=== PATIENT | female | born 1995 | race Two or more races ===

== ENCOUNTER 2017-07-25 12:30 | Observation (INO) | payer SELFPAY ==
[2016-05-08 09:54] VITALS: BP 92/63
[~2017-07-25] VITALS: Ht 147.3 cm; Wt 57.6 kg
[2017-07-25] MEDS ORDERED: SULBACTAM IV ONE (15:00)
[2017-07-25] MEDS ORDERED: TERBUTALINE 1 MG/ML VIAL. SQ PRN (15:00)
[2017-07-25] MEDS ORDERED: IV RINGERS,LACTATED 500ML 500 ML IV PRN (15:00)
[2017-07-25] MEDS ORDERED: ONDANSETRON PF 4 MG/2 ML VIAL. IV PRN (15:00)
[2017-07-25] MEDS ORDERED: NORMAL SALINE IV ONE (15:00)
[2017-07-25] MEDS ORDERED: AMPICILLIN IV ONE (15:00)
[2017-07-25] MEDS: IV RINGERS,LACTATED 1000ML 1,000 ML IV PRN ×3 (15:26→23:10)
[2017-07-25] MEDS ORDERED: AMPICILLIN SODIUM IV Push 2 GM VIAL. IVP ONE (15:30)
[2017-07-25 15:36] LABS: BASO # 0.1 x10^3/uL (0.0-0.2); BASO % 0 % (0-3); EOS % 0 % (0-3); HEMATOCRIT 33.3 % (36.0-47.0); HEMOGLOBIN 10.6 g/dL (12.0-15.5); LYMPH # 1.9 x10^3/uL (1.0-4.8); LYMPH % 14 % (24-48); MEAN CORPUSCULAR HEMOGLOBIN 24 pg (25-35); MEAN CORPUSCULAR HGB CONC 32 g/dL (31-37); MEAN CORPUSCULAR VOLUME 77 fL (79-100); MONO % 6 % (0-9); NEUT % 80 % (31-73); PLATELET COUNT 247 x10^3/uL (140-400); RED BLOOD COUNT 4.33 x10^6/uL (3.50-5.40); RED CELL DISTRIBUTION WIDTH 18.3 % (11.5-14.5); WHITE BLOOD COUNT 13.5 x10^3/uL (4.0-11.0)
[2017-07-25] MEDS: hydrOXYzine PAMOATE 25 MG CAPSULE PO PRN ×2 (15:47→23:40)
[2017-07-25] MEDS: BETAMET ACET&NA PHOS 30 MG/5 ML VIAL. IM SCH (15:48)
[2017-07-25] MEDS ORDERED: NORMAL SALINE IV SCH (16:00)
[2017-07-25] MEDS ORDERED: SULBACTAM IV SCH (16:00)
[2017-07-25] MEDS ORDERED: AMPICILLIN IV SCH (16:00)
[2017-07-25 19:56] LABS: BILIRUBIN,URINE NEGATIVE (NEG); GLUCOSE,URINE NEGATIVE (NEG); NITRITE,URINE NEGATIVE (NEG); PROTEIN,URINE NEGATIVE (NEG-TRACE); UROBILINOGEN,URINE 0.2 mg/dL (0.2 mg/dL)
[2017-07-25 20:02] LABS: BARBITURATES NEG (NEG); BENZODIAZEPINES NEG (NEG); CANNABINOIDS NEG (NEG); COCAINE NEG (NEG); METHADONE NEG (NEG); OPIATES NEG (NEG); PHENCYCLIDINE NEG (NEG)
[2017-07-25 20:06] LABS: BACTERIA,URINE 0 /HPF (0-FEW); RBC,URINE 0 /HPF (0-2); SQUAMOUS EPITHELIAL CELL,UR OCC /LPF; WBC,URINE 0 /HPF (0-4)
[2017-07-25] MEDS: AMPICILLIN SODIUM IV Push 1 GM VIAL. IVP SCH (23:40)
[2017-07-26] MEDS: AMPICILLIN SODIUM IV Push 1 GM VIAL. IVP SCH ×4 (03:55→18:33)
[2017-07-26] MEDS: IV RINGERS,LACTATED 1000ML 1,000 ML IV PRN ×2 (07:58→16:18)
[2017-07-26] MEDS: hydrOXYzine PAMOATE 25 MG CAPSULE PO PRN ×2 (07:58→19:41)
[2017-07-26] MEDS ORDERED: fentaNYL PF VIAL 100 MCG/2 ML VIAL IV PRN (14:15)
--- NOTE | 2017-07-26 15:01 | PDOC1 ---
OB - History Hx of Present Care: Limited Care Ultrasounds: Normal mid trimester US Obstetrical Complications: None Medical Complications: None Other Concerns: h/o rapid labor Past Family/Social History * Past Medical, Surgical, Family and Obstetric Histories reviewed from chart. Rubella: Immune RPR/VDRL: Negative GBS Status: Unknown HBsAG: Negative OB - Chief Complaint & HPI Date of Admission: Date of Admission: Jul 25, 2017 at 12:30 Chief Complaint/History : 2 Para: 1 EGA: 36 Reason for admission: labor Admission Nurse Assessment Rev: Yes Problems: OB - Admission Exam Physical Exam Vitals: VS - Last 72 Hours, by Label Date Time Temp Pulse Resp B/P (MAP) Pulse Ox O2 Delivery O2 Flow Rate FiO2 07/26/17 14:34 20 HEENT: Normal Heart: Regular Rate Lungs: Clear Abdomen: Gravid, Soft, Tender Extremities: Edema Reflexes: Normal Cervical Dilatation: 1cm Effacement: 50% Station: -3 Membranes: Intact Heart Rate: Normal Accelerations: Accelerations Present Decelerations: No decelerations Contractions on Admission: < 5 Minutes Apart Intensity: Moderate Text A: 36 wks IUP by sono ( pt. unsure about LMP) H/o rapid labor PTL P: Admit for IV hydration. Pt. started on late dose corticosteroids for lung maturity. Will recheck cervix after 2nd dose of betamethasone and if no change, then d/c home with f/u in 1 week. MICHEL HOLT Jr, MD Jul 26, 2017 15:01
[2017-07-26] MEDS: BETAMET ACET&NA PHOS 30 MG/5 ML VIAL. IM SCH (16:15)
== END 2017-07-26 19:56 | disposition home or self-care (01) ==
LOC: 3 SO LND 12:30
PROVIDERS: ADMIT Specialist; ATTEND Specialist
DX: O60.03 Preterm labor without delivery, third trimester (principal); Z3A.36 36 weeks gestation of pregnancy
CPT/HCPCS: 36415; 80307; 81001; 85025; 86592; 86593; 86850; 86900; 86901; 96361; 96372; 96374; 96375; 96376; G0378; G0379; J0290; J0702; J3010; Q0177; J7120; G0479

== ENCOUNTER 2017-07-30 03:14 | Inpatient (IN) | payer SELFPAY ==
[~2017-07-30] VITALS: Ht 147.3 cm; Wt 56.8 kg
[2017-07-30] MEDS ORDERED: IV RINGERS,LACTATED 1000ML 1,000 ML IV SCH ×2 (03:30→04:37)
[2017-07-30 03:57] LABS: BILIRUBIN,URINE NEGATIVE (NEG); GLUCOSE,URINE NEGATIVE (NEG); NITRITE,URINE NEGATIVE (NEG); PH,URINE 6.5; PROTEIN,URINE NEGATIVE (NEG-TRACE)
[2017-07-30 04:04] LABS: BARBITURATES NEG (NEG); BENZODIAZEPINES NEG (NEG); CANNABINOIDS NEG (NEG); COCAINE NEG (NEG); METHADONE NEG (NEG); OPIATES NEG (NEG); PHENCYCLIDINE NEG (NEG)
[2017-07-30 04:12] LABS: BACTERIA,URINE MODERATE /HPF (0-FEW); RBC,URINE OCC /HPF (0-2); SQUAMOUS EPITHELIAL CELL,UR MOD /LPF
[2017-07-30] MEDS ORDERED: TERBUTALINE 1 MG/ML VIAL. ONE (04:38)
[2017-07-30] MEDS ORDERED: LIDOCAINE 1% PF 30 ML VIAL. INJ PRN (04:45)
[2017-07-30] MEDS ORDERED: AMPICILLIN SODIUM 1 GM in IV NORMAL SALINE 50ML 50 ML IV SCH (04:45)
[2017-07-30] MEDS ORDERED: OXYTOCIN 30 UNIT/500 ML PREMIX 500 ML IV PRN (04:45)
[2017-07-30] MEDS ORDERED: AMPICILLIN SODIUM 2 GM in IV NORMAL SALINE 100ML 100 ML IV ONE (04:45)
[2017-07-30] MEDS ORDERED: 0.9 % SODIUM CHLORIDE 10 ML DISP.SYRIN. IV PRN (04:45)
[2017-07-30] MEDS ORDERED: TERBUTALINE 1 MG/ML VIAL. SQ PRN (04:45)
[2017-07-30] MEDS ORDERED: AMPICILLIN SODIUM IV Push 2 GM VIAL. IVP ONE (05:00)
[2017-07-30] MEDS ORDERED: OXYTOCIN in NORMAL SALINE PREMIX 30 UNIT/500 ML BAG. IV ONE (05:30)
[2017-07-30 05:50] LABS: BASO % 0 % (0-3); EOS % 0 % (0-3); HEMATOCRIT 33.3 % (36.0-47.0); HEMOGLOBIN 10.5 g/dL (12.0-15.5); LYMPH % 30 % (24-48); MEAN CORPUSCULAR HEMOGLOBIN 24 pg (25-35); MEAN CORPUSCULAR HGB CONC 31 g/dL (31-37); MEAN CORPUSCULAR VOLUME 78 fL (79-100); MONO % 7 % (0-9); NEUT % 63 % (31-73); PLATELET COUNT 262 x10^3/uL (140-400); RED CELL DISTRIBUTION WIDTH 19.2 % (11.5-14.5); WHITE BLOOD COUNT 13.3 x10^3/uL (4.0-11.0)
--- NOTE | 2017-07-30 05:59 | RAD ---
Limited OB ultrasound greater than 14 weeks 07/30/2017 Clinical History: Patient presents in labor of uncertain dates and size. Technique: A real-time ultrasound examination of the gravid uterus was performed. Multiple images were obtained. Findings: There is a single living IUP. The fetus is in a cephalic position. cardiac and somatic activity is seen. The heart rate is 149 beats per minutes. The maternal cervix is not visualized. Neither maternal ovary is seen. The placenta is in anterior. No abnormality is seen. The amniotic fluid volume is within normal limits. The MJ measures 5.8. The following measurements were obtained: BPD 8.6cm 34 weeks 6 days HC 31.32 cm 35weeks 1 days AC 32.8 cm 36weeks 0 days FL 7.38 cm 37 weeks 5 days The estimated gestational age by ultrasound is 36 weeks 0 days plus or minus a standard deviation of 3 weeks. The estimated date of delivery by ultrasound is 08/27/2017. The estimated weight is 2880 g +/- 426 g (6 lbs. 6 oz.). Detailed evaluation of anatomy was not performed. Impression: Single living IUP with an estimated gestational age by ultrasound of 36 weeks 0 days +/- a standard deviation of 3 weeks Electronically signed by: Kennedy Barry MD (07/30/2017 5:56 AM) [id number]
[2017-07-30] MEDS ORDERED: BETAMET ACET&NA PHOS 30 MG/5 ML VIAL. IM SCH (06:00)
--- NOTE | 2017-07-30 06:01 | PDOC1 ---
OB - History Hx of Present Care: Good Care Ultrasounds: Normal mid trimester US Obstetrical Complications: None Medical Complications: None Past Family/Social History * Past Medical, Surgical, Family and Obstetric Histories reviewed from chart. Blood Type: O+ Rubella: Immune RPR/VDRL: Negative GBS Status: Positive HBsAG: Negative OB - Chief Complaint & HPI Date of Admission: Date of Admission: Jul 30, 2017 at 03:14 Chief Complaint/History : 2 Para: 1 EDC: Aug 23, 2017 EGA: 36.4 Reason for admission: active labor Admission Nurse Assessment Rev: Yes Problems: OB - Admission Exam Physical Exam HEENT: Normal, Nasal Mucosa Normal, Oropharynx Normal, Moist Membranes, Fontanelles Normal Heart: Regular Rate Lungs: Clear Abdomen: Gravid Extremities: Normal Pulses, No tenderness or swelling Reflexes: Normal Cervical Dilatation: 2cm Effacement: 50% Station: -2 Membranes: Intact Heart Rate: Normal Accelerations: Accelerations Present Decelerations: No decelerations Short Term Variability: Present Shelter Variability: Moderate Contractions on Admission: < 5 Minutes Apart Date/Time Contractions Began;: 07/30/17 Frequency of Contractions: 0100 Intensity: Moderate A/P Pt is a 21yo female @ 36.4wga 1)Early labor- CEFM. There was some initial confusion on due date. Pt' s initial due date was based on LMP and was 09/10/17, but was changed after initial U/S done 2 months ago to 08/23/17, confirmed with U/S done this morning on pt's arrival 2)GBS positive 3) Problems: ANGIE CERRATO MD Jul 30, 2017 06:01
[2017-07-30] MEDS ORDERED: fentaNYL PF VIAL 100 MCG/2 ML VIAL ONE (07:38)
[2017-07-30] MEDS ORDERED: fentaNYL PF VIAL 100 MCG/2 ML VIAL IV PRN (07:45)
--- NOTE | 2017-07-30 08:24 | PDOC ---
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 Pt given 1 dose of Ampicillin prior to delivery 3) Problems: ANGIE CERRATO MD Jul 30, 2017 08:24
[2017-07-30] MEDS ORDERED: AMPICILLIN SODIUM IV Push 1 GM VIAL. IVP SCH (09:00)
[2017-07-30] MEDS: IBUPROFEN 800 MG TABLET. PO PRN (10:37)
[2017-07-30 13:11] VITALS: BP 101/63
[2017-07-30 17:00] VITALS: BP 98/72
[2017-07-30 23:13] VITALS: BP 98/58
[2017-07-31 05:27] VITALS: BP 100/50
[2017-07-31] MEDS: IBUPROFEN 800 MG TABLET. PO PRN (06:59)
--- NOTE | 2017-07-31 07:55 | PDOC ---
OB Progress Note Date of Service 07/31/17 Time of Evaluation 0740 Date: 07/30/17 Time: 0807 Notes Pt is doing well. not latching well but pt still trying to breastfeed; supplementing with formula. Bleeding is less than a period. Pt considering Nexplanon for control. Lab Laboratory Tests Test 07/30/17 03:30 07/30/17 05:07 Urine Collection Type Unknown Urine Color Yellow Urine Clarity Clear Urine pH 6.5 Urine Specific [place] 1.015 Urine Protein Negative mg/dL (NEG-TRACE) Urine Glucose (UA) Negative mg/dL (NEG) Urine Ketones (Stick) Negative mg/dL (NEG) Urine Blood Small (NEG) Urine Nitrite Negative (NEG) Urine Bilirubin Negative (NEG) Urine Urobilinogen Dipstick 1.0 mg/dL (0.2 mg/dL) Urine Leukocyte Esterase Negative (NEG) Urine RBC Occ /HPF (0-2) Urine WBC 1-4 /HPF (0-4) Urine Squamous Epithelial Cells Mod /LPF Urine Bacteria Moderate /HPF (0-FEW) Urine Mucus Slight /LPF Urine Opiates Screen Neg (NEG) Urine Methadone Screen Neg (NEG) Urine Barbiturates Neg (NEG) Urine Phencyclidine Screen Neg (NEG) Urine Amphetamine/Methamphetamine Neg (NEG) Urine Benzodiazepines Screen Neg (NEG) Urine Cocaine Screen Neg (NEG) Urine Cannabinoids Screen Neg (NEG) Urine Ethyl Alcohol Neg (NEG) White Blood Count 13.3 x10^3/uL (4.0-11.0) Red Blood Count 4.30 x10^6/uL (3.50-5.40) Hemoglobin 10.5 g/dL (12.0-15.5) Hematocrit 33.3 % (36.0-47.0) Mean Corpuscular Volume 78 fL (79-100) Mean Corpuscular Hemoglobin 24 pg (25-35) Mean Corpuscular Hemoglobin Concent 31 g/dL (31-37) Red Cell Distribution Width 19.2 % (11.5-14.5) Platelet Count 262 x10^3/uL (140-400) Neutrophils (%) (Auto) 63 % (31-73) Lymphocytes (%) (Auto) 30 % (24-48) Monocytes (%) (Auto) 7 % (0-9) Eosinophils (%) (Auto) 0 % (0-3) Basophils (%) (Auto) 0 % (0-3) Neutrophils # (Auto) 8.4 x10^3uL (1.8-7.7) Lymphocytes # (Auto) 4.0 x10^3/uL (1.0-4.8) Monocytes # (Auto) 0.9 x10^3/uL (0.0-1.1) Eosinophils # (Auto) 0.0 x10^3/uL (0.0-0.7) Basophils # (Auto) 0.0 x10^3/uL (0.0-0.2) Rapid Plasma Reagin Non reactive (Non Reactive) Medications Current Medications Ringer's Solution 1,000 ml @ 125 mls/hr Q8H IV ; Start 07/30/17 at 03:30; Stop 07/30/17 at 13:17; Status DC Terbutaline Sulfate (Brethine) 1 mg STK-MED ONCE .ROUTE ; Start 07/30/17 at 04: 38; Stop 07/30/17 at 13:17; Status DC Sodium Chloride (Normal Saline Flush) 3 ml QSHIFT PRN IV AFTER MEDS AND BLOOD DRAWS; Start 07/30/17 at 04:45; Stop 07/30/17 at 13:17; Status DC Ringer's Solution 1,000 ml @ 125 mls/hr Q8H IV ; Start 07/30/17 at 04:37; Stop 07/30/17 at 13:17; Status DC Terbutaline Sulfate (Brethine) 0.25 mg 1X PRN PRN SQ SEE COMMENTS; Start 07/30 at 04:45; Stop 07/30/17 at 13:17; Status DC Lidocaine HCl 30 ml 1X PRN PRN INJ SEE COMMENTS; Start 07/30/17 at 04:45; Stop 07/30/17 at 13:17; Status DC Ampicillin Sodium 2 gm/Sodium Chloride 100 ml @ 200 mls/hr 1X ONCE IV ; Start 07/30/17 at 04:45; Stop 07/30/17 at 05:14; Status UNV Ampicillin Sodium 1 gm/Sodium Chloride 50 ml @ 100 mls/hr Q4H IV ; Start 07/30 at 04:45; Status UNV Oxytocin/Sodium Chloride 500 ml @ 0 mls/hr CONT PRN PRN IV Post delivery bleeding; Start 07/30/17 at 04:45; Stop 07/30/17 at 13:17; Status DC Ibuprofen (Motrin) 800 mg PRN Q6HRS PRN PO MODERATE PAIN Last administered on 07/31/17t 06:59; Start 07/30/17 at 04:45 Betamethasone Sodium Phosphate (Celestone Soluspan) 12 mg Q24H IM ; Start 07/30 at 06:00; Stop 07/30/17 at 13:17; Status DC Ampicillin Sodium (Omnipen) 2 gm 1X ONCE IVP Last administered on 07/30/17t 05:25; Start 07/30/17 at 05:00; Stop 07/30/17 at 13:17; Status DC Ampicillin Sodium (Omnipen) 1 gm Q4H IVP ; Start 07/30/17 at 09:00; Stop 07/30 at 13:17; Status DC Fentanyl Citrate (Fentanyl 2ml Vial) 100 mcg STK-MED ONCE .ROUTE ; Start at 07:38; Stop 07/30/17 at 13:17; Status DC Fentanyl Citrate (Fentanyl 2ml Vial) 100 mcg PRN Q2HR PRN IV PAIN; Start 07/30 at 07:45; Stop 07/30/17 at 13:17; Status DC Exam GEN: NAD, AOx3 HEENT: MMM, EOMI, no scleral icterus/injection Cardiac: RRR, no M/R/G Lungs: CTAB, regular breathing rate and effort Abd: soft, NTTP Ext: no erythema/edema LE bilaterally Nuero: CN2-12 GI Assessment Pt is a 21yo female [id number] s/p @ 36.4wga 1) 2)GBS unknown- positive during previous . Pt given 1 dose of Ampicillin prior to delivery 3) 4) control- pt interested in ANGIE Cai MD Jul 31, 2017 07:55
[2017-07-31 12:31] VITALS: BP 104/68
[2017-07-31 17:46] VITALS: BP_SYST 110
[2017-07-31 23:00] VITALS: BP 94/60
[2017-08-01] MEDS: IBUPROFEN 800 MG TABLET. PO PRN (04:50)
[2017-08-01 05:30] VITALS: BP 97/65
[2017-08-01] MEDS ORDERED: DOCU100C28 PO (08:31)
[2017-08-01] MEDS ORDERED: IBUP800T19 PO (08:31)
--- NOTE | 2017-08-01 08:35 | PDOC3 ---
OB DISCHARGE SUMMARY DATE OF ADMISSION: 07/30/17 DATE OF DISCHARGE: 08/01/17 REASON FOR ADMISSION: Onset of labor PROCEDURES: Ultrasound INTRAPARTUM PROCEDURES: Spontanous Vag Deliv DISCHARGE DIAGNOSIS: Others (Late delivery) DISCHARGE INFORMATION: Activity (As tolerated), Diet (Regular), Medications ( Ibuprofen 800mg q6H, Docusate 100mg qday), Discharge to (home) HOSPITAL COURSE Pt is a 21yo female [id number] s/p @ 36.4wga 1) 2)GBS unknown- positive during previous . Pt given 1 dose of Ampicillin prior to delivery 3) 4) control- pt interested in Nexplanon. Discussed that pt can follow up with me outpatient or [facility], but that I won't be able to place her Nexplanon. ANGIE CERRATO MD Aug 01, 2017 08:35
[2017-08-01 09:30] VITALS: BP 107/65
== END 2017-08-01 11:50 | disposition home or self-care (01) | DRG 775 ==
LOC: 3 SO LND 03:14 → OBSVTOIN 03:14 → 3 NORTH 10:41
PROVIDERS: ADMIT Family Medicine; ATTEND Family Medicine
PROC: 10E0XZZ Delivery of Products of Conception, External Approach (ICD-10-PCS; principal; 2017-07-30)
DX: O60.14X0 Preterm labor third trimester with preterm delivery third trimester, not applicable or unspecified (principal); O69.81X0 Labor and delivery complicated by cord around neck, without compression, not applicable or unspecified; Z37.0 Single live birth; Z3A.36 36 weeks gestation of pregnancy
CPT/HCPCS: 36415; 76815; 80307; 81001; 85025; 85027; 86593; 86850; 86900; 86901; 87086; 87186; G0378; J0290; J2590; G0479